=== PATIENT | female | born 1995 | race American Indian/Alaskan Native ===

== ENCOUNTER 2018-12-18 02:05 | Emergency (ER) | payer OTHER ==
[2018-12-18 02:11] VITALS: BP 140/92
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
== END 2018-12-18 04:30 | disposition home or self-care (01) ==
LOC: ED 02:05
DX: S50.312A Abrasion of left elbow, initial encounter (principal); T23.072A Burn of unspecified degree of left wrist, initial encounter; Z91.018 Allergy to other foods; Z87.891 Personal history of nicotine dependence; V87.7XXA Person injured in collision between other specified motor vehicles (traffic), initial encounter; Y93.89 Activity, other specified; Y92.488 Other paved roadways as the place of occurrence of the external cause; Y99.8 Other external cause status
CPT/HCPCS: 99283